=== PATIENT | male | born 1970 | race Caucasian/White ===

== ENCOUNTER 2018-10-14 03:12 | Inpatient (IN) | payer MEDICARE, OTHER ==
[2018-10-14 03:33] LABS: ADD MAN DIFF? NO
[2018-10-14 04:01] LABS: BASOPHIL # 0.1 10^3/ul (0.0-0.1); BASOPHILS % 0.5 % (0.0-2.0); EOSINOPHILS # 0.2 10^3/ul (0.0-0.5); EOSINOPHILS % 1.4 % (0.0-7.0); HEMATOCRIT 54.7 % (42.0-52.0); HEMOGLOBIN 17.3 g/dl (14.0-18.0); INR 0.89; LYMPHOCYTES # 1.2 10^3/ul (0.8-2.9); LYMPHOCYTES % 9.8 % (15.0-51.0); MEAN CORPUSCULAR HEMOGLOBIN 28.6 pg (29.0-33.0); MEAN CORPUSCULAR HGB CONC 31.6 g/dl (32.0-37.0); MEAN CORPUSCULAR VOLUME 90.4 fl (82.0-101.0); MEAN PLATELET VOLUME 10.6 fl (7.4-10.4); MONOCYTE # 0.8 10^3/ul (0.3-0.9); MONOCYTES % 6.8 % (0.0-11.0); NEUTROPHIL # 9.8 10^3/ul (1.6-7.5); NEUTROPHILS % 80.6 % (39.0-77.0); PLATELET COUNT 224 10^3/UL (140-415); PROTIME 12.2 Sec (11.9-14.9); RED BLOOD COUNT 6.05 10^6/ul (4.70-6.10)
[2018-10-14 04:01] LABS: WHITE BLOOD COUNT 12.2 10^3/ul (4.8-10.8)
[2018-10-14 04:02] LABS: PARTIAL THROMBOPLASTIN TIME 33.7 Sec (23.0-35.0)
[2018-10-14 04:12] LABS: ANION GAP 10 (5-13); BLOOD UREA NITROGEN 5 mg/dl (7-20); CALCIUM 9.5 mg/dl (8.4-10.2); CARBON DIOXIDE 29 mmol/L (21-31); CHLORIDE 90 mmol/L (97-110); CREATININE 0.47 mg/dl (0.61-1.24); Estimated GFR > 60 mL/min (>60); GLUCOSE 163 mg/dl (70-220); POTASSIUM 4.8 mmol/L (3.5-5.1); SODIUM 129 mmol/L (135-144)
[2018-10-14 04:15] LABS: ETHANOL < 10.0 mg/dl (0-0)
[2018-10-14 04:16] LABS: AADO2 Arterial 126.6 mmHg (7.0-24.0); Allen Test ACCEPTAB; Arterial Base Excess 1.8 mmol/L (-3.0-3); Arterial Blood Gas Oxygen Sat 90.7 mmHG (95.0-98.0); Arterial Fraction of Oxyhgb 78.7 % (93.0-99.0); Arterial HCO3 32.6 mmol/L (22.0-26.0); Arterial MetHb 0.2 % (0.0-1.5); Arterial pCO2 77.8 mmhg (35-45); MODE NASAL CANNULA; Site Right Radial
[2018-10-14 04:20] LABS: B-TYPE NATRIURETIC PEPTIDE 130 PG/ML (0-125)
[2018-10-14 04:25] LABS: TROPONIN-I < 0.012 ng/ml (0.000-0.120)
[2018-10-14] MEDS: FUROSEMIDE 40 MG INJ IV (04:30)
[2018-10-14 06:03] LABS: AMPHETAMINE/METHAMPHETAMINE Negative (NEGATIVE); BARBITURATES Negative (NEGATIVE); BENZODIAZEPINES Negative (NEGATIVE); CANNABINOIDS Negative (NEGATIVE); COCAINE Negative (NEGATIVE); OPIATES Negative (NEGATIVE)
[2018-10-14] MEDS ORDERED: NACL 0.9% 3 ML SYG IV (06:30)
[2018-10-14] MEDS ORDERED: ONDANSETRON 4 MG INJ IV (06:30)
[2018-10-14] MEDS ORDERED: ACETAMINOPHEN 325 MG TAB PO (06:30)
[2018-10-14] MEDS: INSULIN ASPART [NOVOLOG] 3 ML PEN SC ×4 (08:00→20:35)
[2018-10-14] MEDS: METHYLPREDNISOLONE 125 MG INJ IV (08:32)
[2018-10-14] MEDS: HEPARIN 5,000 UNIT/1 ML VIAL SC ×2 (08:39→20:44)
[2018-10-14] MEDS: FUROSEMIDE 40 MG TAB PO (08:44)
[2018-10-14] MEDS: RISPERIDONE 2 MG TAB PO ×2 (09:00→20:35)
[2018-10-14] MEDS: ATORVASTATIN 40 MG TAB PO (10:09)
[2018-10-14] MEDS: LAMOTRIGINE 100 MG TAB PO ×2 (10:09→20:34)
[2018-10-14] MEDS: MIRTAZAPINE 15 MG TAB PO (10:09)
[2018-10-14] MEDS: BENZTROPINE 1 MG TAB PO ×2 (10:10→20:35)
[2018-10-14] MEDS: metFORMIN 500 MG TAB PO (10:10)
[2018-10-14] MEDS: MOMETASONE 0.24 GM INHALER INH ×2 (10:21→20:34)
[2018-10-14 11:57] LABS: AADO2 Arterial 210.8 mmHg (7.0-24.0); Allen Test ACCEPTAB; Arterial Base Excess 1.9 mmol/L (-3.0-3); Arterial Blood Gas Oxygen Sat 86.6 mmHG (95.0-98.0); Arterial Fraction of Oxyhgb 79.6 % (93.0-99.0); Arterial HCO3 33.1 mmol/L (22.0-26.0); Arterial MetHb 0.1 % (0.0-1.5); Arterial pCO2 78.9 mmhg (35-45); Blood Gas IEPAP 15/5; Blood Gas PS 10; MODE MASK - BIPAP; Site Left Radial
[2018-10-14] MEDS ORDERED: NITROGLYCERIN (SL) 0.4 MG TAB SL (13:30)
[2018-10-14] MEDS: morphine 2 MG INJ IV (13:50)
[2018-10-14 14:25] LABS: TROPONIN-I < 0.012 ng/ml (0.000-0.120)
[2018-10-14] MEDS: AMLODIPINE 10 MG TAB PO (14:30)
[2018-10-14 18:32] LABS: AADO2 Arterial 279.3 mmHg (7.0-24.0); Allen Test ACCEPTAB; Arterial Base Excess 2.5 mmol/L (-3.0-3); Arterial Blood Gas Oxygen Sat 92.1 mmHG (95.0-98.0); Arterial COHb 4.5 % (0.0-3.0); Arterial Fraction of Oxyhgb 87.6 % (93.0-99.0); Arterial MetHb 0.4 % (0.0-1.5); Arterial pCO2 74.8 mmhg (35-45); Blood Gas IEPAP 18/8; MODE MASK - BIPAP; Site Right Radial
[2018-10-15] MEDS: ACCU-CHEK XX (00:50)
[2018-10-15 05:55] LABS: ADD MAN DIFF? NO
[2018-10-15 06:07] LABS: BASOPHILS % 0.3 % (0.0-2.0); HEMATOCRIT 54.2 % (42.0-52.0); HEMOGLOBIN 16.9 g/dl (14.0-18.0); LYMPHOCYTES # 1.1 10^3/ul (0.8-2.9); LYMPHOCYTES % 9.1 % (15.0-51.0); MEAN CORPUSCULAR HEMOGLOBIN 28.5 pg (29.0-33.0); MEAN CORPUSCULAR HGB CONC 31.2 g/dl (32.0-37.0); MEAN CORPUSCULAR VOLUME 91.6 fl (82.0-101.0); MEAN PLATELET VOLUME 10.7 fl (7.4-10.4); MONOCYTE # 1.5 10^3/ul (0.3-0.9); MONOCYTES % 12.5 % (0.0-11.0); NEUTROPHIL # 9.3 10^3/ul (1.6-7.5); NEUTROPHILS % 77.4 % (39.0-77.0); PLATELET COUNT 211 10^3/UL (140-415); RED BLOOD COUNT 5.92 10^6/ul (4.70-6.10); RED CELL DISTRIBUTION WIDTH 15.8 % (11.5-14.5)
[2018-10-15 06:11] LABS: HEMOGLOBIN A1C 6.8 % (0-5.9)
[2018-10-15] MEDS: FUROSEMIDE 40 MG TAB PO (06:12)
[2018-10-15 06:38] LABS: ALANINE AMINOTRANSFERASE 23 IU/L (13-69); ALBUMIN 3.9 g/dl (3.3-4.9); ALBUMIN/GLOBULIN RATIO 1.34; ALKALINE PHOSPHATASE 45 IU/L (42-121); ANION GAP 8 (5-13); ASPARTATE AMINO TRANSFERASE 15 IU/L (15-46); BILIRUBIN,INDIRECT 0.2 mg/dl (0-1.1); BILIRUBIN,TOTAL 0.2 mg/dl (0.2-1.3); BLOOD UREA NITROGEN 14 mg/dl (7-20); CALCIUM 9.1 mg/dl (8.4-10.2); CARBON DIOXIDE 34 mmol/L (21-31); CHLORIDE 88 mmol/L (97-110); CHOL/HDL RATIO 6.4 RATIO; CHOLESTEROL 148 mg/dl (100-200); CREATININE 0.78 mg/dl (0.61-1.24); Estimated GFR > 60 mL/min (>60); GLUCOSE 110 mg/dl (70-220); HDL CHOLESTEROL 23 mg/dl (28-71); LDL CHOLESTEROL,CALCULATED 62 mg/dl; MAGNESIUM 1.4 mg/dl (1.7-2.5); SODIUM 130 mmol/L (135-144); TOTAL PROTEIN 6.8 g/dl (6.1-8.1); TRIGLYCERIDES 315 mg/dl (0-149)
[2018-10-15] MEDS: INSULIN ASPART [NOVOLOG] 3 ML PEN SC ×3 (08:00→21:00)
[2018-10-15] MEDS: metFORMIN 500 MG TAB PO (08:00)
[2018-10-15 08:16] LABS: AADO2 Arterial 201.4 mmHg (7.0-24.0); Allen Test ACCEPTAB; Arterial Base Excess 5.4 mmol/L (-3.0-3); Arterial Blood Gas Oxygen Sat 91.8 mmHG (95.0-98.0); Arterial COHb 2.3 % (0.0-3.0); Arterial Fraction of Oxyhgb 89.4 % (93.0-99.0); Arterial HCO3 36.1 mmol/L (22.0-26.0); Arterial MetHb 0.3 % (0.0-1.5); MODE MASK - BIPAP; Site Left Radial
[2018-10-15] MEDS: ATORVASTATIN 40 MG TAB PO (09:00)
[2018-10-15] MEDS: MIRTAZAPINE 15 MG TAB PO (09:00)
[2018-10-15] MEDS: LAMOTRIGINE 100 MG TAB PO ×2 (09:00→21:00)
[2018-10-15] MEDS: AMLODIPINE 10 MG TAB PO (09:00)
[2018-10-15] MEDS: BENZTROPINE 1 MG TAB PO ×2 (09:00→21:00)
[2018-10-15] MEDS: FENOFIBRATE 145 MG TAB PO (09:00)
[2018-10-15] MEDS: RISPERIDONE 2 MG TAB PO ×2 (09:00→21:00)
[2018-10-15] MEDS: METHYLPREDNISOLONE 125 MG INJ IV (09:21)
[2018-10-15] MEDS: MOMETASONE 0.24 GM INHALER INH ×2 (09:21→21:00)
[2018-10-15] MEDS: HEPARIN 5,000 UNIT/1 ML VIAL SC ×2 (09:40→21:13)
[2018-10-15] MEDS: CEFTRIAXONE 1 GM/50 ML (PMX) 50 ML IVPB (10:39)
[2018-10-15] MEDS ORDERED: GLUCAGON 1 MG INJ IM (14:30)
[2018-10-15] MEDS ORDERED: DEXTROSE 50% 50 ML SYRINGE IV ×2 (14:30)
[2018-10-15] MEDS ORDERED: GLUCOSE GEL 15 GRAM TUBE PO ×2 (14:30)
[2018-10-15] MEDS ORDERED: GLUCOSE GEL 15 GRAM TUBE BUCCAL (14:30)
[2018-10-15] MEDS: AZITHROMYCIN 500MG/NS (PMX) 250 ML IVPB (15:09)
[2018-10-15] MEDS: FUROSEMIDE 40 MG INJ IV ×2 (15:09→17:56)
[2018-10-15 15:48] LABS: D-DIMER 436.44 ng/ml (<460)
[2018-10-15] MEDS: MAGNESIUM SULFATE 4 GM/100 ML 100 ML IVPB (16:31)
[2018-10-16] MEDS: INSULIN ASPART [NOVOLOG] 3 ML PEN SC ×7 (02:00→20:47)
[2018-10-16 05:12] LABS: AADO2 Arterial 119.1 mmHg (7.0-24.0); Allen Test ACCEPTAB; Arterial Base Excess 5.9 mmol/L (-3.0-3); Arterial Blood Gas Oxygen Sat 90.1 mmHG (95.0-98.0); Arterial COHb 1.8 % (0.0-3.0); Arterial Fraction of Oxyhgb 88.4 % (93.0-99.0); Arterial HCO3 33.9 mmol/L (22.0-26.0); Arterial MetHb 0.1 % (0.0-1.5); Arterial pCO2 60.6 mmhg (35-45); Blood Gas IEPAP 18/5; Blood Gas PS 13; MODE MASK - BIPAP; Site Right Radial
[2018-10-16 05:20] LABS: ADD MAN DIFF? NO
[2018-10-16 05:27] LABS: ABNORMAL IP MESSAGE 1; BASOPHILS % 0.2 % (0.0-2.0); EOSINOPHILS % 0.1 % (0.0-7.0); HEMATOCRIT 54.9 % (42.0-52.0); LYMPHOCYTES # 1.6 10^3/ul (0.8-2.9); MEAN CORPUSCULAR HEMOGLOBIN 28.2 pg (29.0-33.0); MEAN PLATELET VOLUME 10.4 fl (7.4-10.4); MONOCYTE # 1.6 10^3/ul (0.3-0.9); MONOCYTES % 11.3 % (0.0-11.0); NEUTROPHIL # 10.9 10^3/ul (1.6-7.5); NEUTROPHILS % 76.7 % (39.0-77.0); PLATELET COUNT 232 10^3/UL (140-415); POSITIVE DIFF @See below; RED BLOOD COUNT 6.03 10^6/ul (4.70-6.10); RED CELL DISTRIBUTION WIDTH 16.7 % (11.5-14.5)
[2018-10-16 05:27] LABS: WHITE BLOOD COUNT 14.2 10^3/ul (4.8-10.8)
[2018-10-16 06:14] LABS: ANION GAP 11 (5-13); BLOOD UREA NITROGEN 23 mg/dl (7-20); CALCIUM 9.5 mg/dl (8.4-10.2); CARBON DIOXIDE 36 mmol/L (21-31); CHLORIDE 88 mmol/L (97-110); CREATININE 0.82 mg/dl (0.61-1.24); Estimated GFR > 60 mL/min (>60); GLUCOSE 90 mg/dl (70-220); MAGNESIUM 2.1 mg/dl (1.7-2.5); PHOSPHORUS 4.3 mg/dl (2.5-4.9); POTASSIUM 4.5 mmol/L (3.5-5.1); SODIUM 135 mmol/L (135-144)
[2018-10-16] MEDS: FUROSEMIDE 40 MG INJ IV ×2 (06:19→18:52)
[2018-10-16] MEDS: AMLODIPINE 10 MG TAB PO (09:09)
[2018-10-16] MEDS: LAMOTRIGINE 100 MG TAB PO ×2 (09:09→20:34)
[2018-10-16] MEDS: RISPERIDONE 2 MG TAB PO ×2 (09:09→20:34)
[2018-10-16] MEDS: BENZTROPINE 1 MG TAB PO ×2 (09:09→20:34)
[2018-10-16] MEDS: ATORVASTATIN 40 MG TAB PO (09:09)
[2018-10-16] MEDS: FENOFIBRATE 145 MG TAB PO (09:09)
[2018-10-16] MEDS: METHYLPREDNISOLONE 125 MG INJ IV (09:12)
[2018-10-16] MEDS: MIRTAZAPINE 15 MG TAB PO (09:12)
[2018-10-16] MEDS: MOMETASONE 0.24 GM INHALER INH ×2 (09:12→20:34)
[2018-10-16] MEDS: HEPARIN 5,000 UNIT/1 ML VIAL SC ×2 (09:31→20:47)
[2018-10-16] MEDS: AZITHROMYCIN 500MG/NS (PMX) 250 ML IVPB (10:22)
[2018-10-16] MEDS: ALBUTEROL/IPRATROPIUM (NEB) 3 ML AMP HHN (10:29)
[2018-10-16] MEDS: DOCUSATE SODIUM 100 MG CAP PO (20:34)
[2018-10-17] MEDS: FUROSEMIDE 40 MG INJ IV (05:44)
[2018-10-17 05:45] LABS: Allen Test ACCEPTAB; Arterial Base Excess 8.6 mmol/L (-3.0-3); Arterial Blood Gas Oxygen Sat 84.1 mmHG (95.0-98.0); Arterial COHb 1.3 % (0.0-3.0); Arterial Fraction of Oxyhgb 82.8 % (93.0-99.0); Arterial HCO3 35.6 mmol/L (22.0-26.0); Arterial MetHb 0.3 % (0.0-1.5); Arterial pCO2 56.2 mmhg (35-45); Blood Gas IEPAP 18/5; Blood Gas PS 13; MODE BIPAP - MASK; Site Left Radial
[2018-10-17] MEDS: POLYETHYLENE GLYCOL 17 GM PACKET PO (06:11)
[2018-10-17 06:21] LABS: ADD MAN DIFF? NO
[2018-10-17] MEDS: INSULIN ASPART [NOVOLOG] 3 ML PEN SC ×4 (06:25→20:18)
[2018-10-17 06:38] LABS: BASOPHILS % 0.2 % (0.0-2.0); EOSINOPHILS % 0.1 % (0.0-7.0); HEMATOCRIT 54.3 % (42.0-52.0); HEMOGLOBIN 17.1 g/dl (14.0-18.0); LYMPHOCYTES % 15.6 % (15.0-51.0); MEAN CORPUSCULAR HEMOGLOBIN 28.5 pg (29.0-33.0); MEAN CORPUSCULAR HGB CONC 31.5 g/dl (32.0-37.0); MEAN CORPUSCULAR VOLUME 90.7 fl (82.0-101.0); MONOCYTE # 1.4 10^3/ul (0.3-0.9); NEUTROPHIL # 9.3 10^3/ul (1.6-7.5); NEUTROPHILS % 72.5 % (39.0-77.0); PLATELET COUNT 244 10^3/UL (140-415); RED BLOOD COUNT 5.99 10^6/ul (4.70-6.10); RED CELL DISTRIBUTION WIDTH 16.2 % (11.5-14.5)
[2018-10-17 06:38] LABS: WHITE BLOOD COUNT 12.8 10^3/ul (4.8-10.8)
[2018-10-17 07:03] LABS: ANION GAP 10 (5-13); BLOOD UREA NITROGEN 28 mg/dl (7-20); CALCIUM 9.8 mg/dl (8.4-10.2); CARBON DIOXIDE 36 mmol/L (21-31); CHLORIDE 92 mmol/L (97-110); CREATININE 0.78 mg/dl (0.61-1.24); Estimated GFR > 60 mL/min (>60); GLUCOSE 98 mg/dl (70-220); POTASSIUM 4.1 mmol/L (3.5-5.1); SODIUM 138 mmol/L (135-144)
[2018-10-17] MEDS: DOCUSATE SODIUM 100 MG CAP PO ×2 (08:36→20:18)
[2018-10-17] MEDS: FENOFIBRATE 145 MG TAB PO (08:37)
[2018-10-17] MEDS: BENZTROPINE 1 MG TAB PO ×2 (08:37→20:18)
[2018-10-17] MEDS: LAMOTRIGINE 100 MG TAB PO ×2 (08:37→20:18)
[2018-10-17] MEDS: AMLODIPINE 10 MG TAB PO (08:37)
[2018-10-17] MEDS: RISPERIDONE 2 MG TAB PO ×2 (08:37→20:18)
[2018-10-17] MEDS: MIRTAZAPINE 15 MG TAB PO (08:37)
[2018-10-17] MEDS: METHYLPREDNISOLONE 40 MG INJ IV (08:38)
[2018-10-17] MEDS: MOMETASONE 0.24 GM INHALER INH ×2 (08:38→20:19)
[2018-10-17] MEDS: ATORVASTATIN 40 MG TAB PO (08:38)
[2018-10-17] MEDS: HEPARIN 5,000 UNIT/1 ML VIAL SC ×2 (08:46→21:15)
[2018-10-17] MEDS: AZITHROMYCIN 500MG/NS (PMX) 250 ML IVPB (11:27)
[2018-10-17] MEDS: NA PHOSPHATE/BIPHOS 133 ML ENEMA PR (15:58)
[2018-10-17] MEDS ORDERED: morphine LIQ (10 MG/5 ML) CUP PO (16:00)
[2018-10-17] MEDS: FUROSEMIDE 20 MG INJ IV (17:32)
[2018-10-17] MEDS: BALSAM PERU/CASTOR OIL 60 GM TUBE TOP (20:17)
[2018-10-18] MEDS: FUROSEMIDE 20 MG INJ IV (05:26)
[2018-10-18 05:38] LABS: ANION GAP 9 (5-13); BLOOD UREA NITROGEN 33 mg/dl (7-20); CALCIUM 10.1 mg/dl (8.4-10.2); CARBON DIOXIDE 36 mmol/L (21-31); CHLORIDE 93 mmol/L (97-110); CREATININE 0.86 mg/dl (0.61-1.24); Estimated GFR > 60 mL/min (>60); GLUCOSE 101 mg/dl (70-220); POTASSIUM 3.9 mmol/L (3.5-5.1); SODIUM 138 mmol/L (135-144)
[2018-10-18] MEDS: INSULIN ASPART [NOVOLOG] 3 ML PEN SC ×2 (08:00→11:30)
[2018-10-18] MEDS: MOMETASONE 0.24 GM INHALER INH (09:06)
[2018-10-18] MEDS: BENZTROPINE 1 MG TAB PO (09:06)
[2018-10-18] MEDS: DOCUSATE SODIUM 100 MG CAP PO (09:06)
[2018-10-18] MEDS: METHYLPREDNISOLONE 40 MG INJ IV (09:06)
[2018-10-18] MEDS: FENOFIBRATE 145 MG TAB PO (09:06)
[2018-10-18] MEDS: MIRTAZAPINE 15 MG TAB PO (09:06)
[2018-10-18] MEDS: ATORVASTATIN 40 MG TAB PO (09:07)
[2018-10-18] MEDS: AMLODIPINE 10 MG TAB PO (09:07)
[2018-10-18] MEDS: BALSAM PERU/CASTOR OIL 60 GM TUBE TOP (09:07)
[2018-10-18] MEDS: HEPARIN 5,000 UNIT/1 ML VIAL SC (09:22)
[2018-10-18] MEDS: AZITHROMYCIN 500MG/NS (PMX) 250 ML IVPB (10:00)
[2018-10-18] MEDS: RISPERIDONE 2 MG TAB PO (11:13)
[2018-10-18] MEDS: LAMOTRIGINE 100 MG TAB PO (11:14)
[2018-10-18] MEDS ORDERED: FUROSEMIDE 20 MG TAB PO (18:00)
== END 2018-10-18 13:15 | disposition home or self-care (01) | DRG 190 ==
LOC: 6WM 10-16 17:15 → ICU 10-15 10:20 → E/R 03:12 → 6WM 04:30
PROC: 5A09457 Assistance with Respiratory Ventilation, 24-96 Consecutive Hours, Continuous Positive Airway Pressure (ICD-10-PCS; principal; 2018-10-14)
PROC: 4A133R1 Monitoring of Arterial Saturation, Peripheral, Percutaneous Approach (ICD-10-PCS; 2018-10-14)
DX: J44.1 Chronic obstructive pulmonary disease with (acute) exacerbation (principal); J96.22 Acute and chronic respiratory failure with hypercapnia; J96.21 Acute and chronic respiratory failure with hypoxia; E66.2 Morbid (severe) obesity with alveolar hypoventilation; Z68.41 Body mass index [BMI] 40.0-44.9, adult; E22.2 Syndrome of inappropriate secretion of antidiuretic hormone; I42.9 Cardiomyopathy, unspecified; J84.9 Interstitial pulmonary disease, unspecified; Z71.3 Dietary counseling and surveillance; E83.42 Hypomagnesemia; E11.9 Type 2 diabetes mellitus without complications; I11.0 Hypertensive heart disease with heart failure; I50.9 Heart failure, unspecified; E78.5 Hyperlipidemia, unspecified; I25.10 Atherosclerotic heart disease of native coronary artery without angina pectoris; R07.81 Pleurodynia; I27.29 Other secondary pulmonary hypertension
CPT/HCPCS: 36415; 36600; 71045; 80048; 80053; 80061; 80307; 82803; 82962; 83036; 83735; 83880; 84100; 84484; 85025; 85378; 85610; 85730; 93005; 93306; 94640; 94660; 94664; 96374; 99285-25